=== PATIENT | male | born 1985 | race Caucasian/White ===

== ENCOUNTER 2017-07-30 19:27 | Emergency (ER) | payer SELFPAY ==
[2017-07-30 19:45] VITALS: BP 146/89
--- NOTE | 2017-07-30 20:17 | EDM.PDOC ---
ED HPI GENERAL MEDICAL PROBLEM - General Chief Complaint: Lower Extremity Injury/Pain Stated Complaint: POSS LEG INJURY Time Seen by Provider: 07/30/17 19:44 Source of Information: Reports: Patient History Limitations: Reports: No Limitations - History of Present Illness INITIAL COMMENTS - FREE TEXT/NARRATIVE: 32-year-old male presents for evaluation treatment of an injury to the left knee. Patient reports he was at work about one week ago. States he slipped on some ice and fell onto a chunk of ice. He acknowledges that he is overweight and states that he had a lot of weight onto his knee. Since the fall he has been experiencing pain for the left knee and left lower leg from the knee down to the ankle. Reports discomfort with ambulation. He also has abrasion to the left anterior tibia. No fevers, chills, nausea or vomiting. No numbness or tingling to the leg. Reports pain with certain movements and pain with ambulation. He is only been taking Aleve for pain and declines anything stronger. He denies any bruising to the but reports that the needed as well. He has been using compression sock which has helped with the swelling. No previous trauma to the left knee. Left Lower Leg Pain Score (Numeric/FACES): 9 - Related Data Allergies Allergy/AdvReac Type Severity Reaction Status Date / Time Penicillins Allergy Rash Verified 07/30/17 19:38 Home Meds: Home Meds . [No Known Home Meds] 07/30/17 [History] Past Medical History - Past Health History Medical/Surgical History: Denies Medical/Surgical History Musculoskeletal History: Reports: Other (See Below) Other Musculoskeletal History: artery bleed to the leg Social & Family History - Tobacco Use Smoking Status *Q: Never Smoker Second Hand Smoke Exposure: No - Caffeine Use Caffeine Use: Reports: Coffee, Tea - Alcohol Use Days Per Week of Alcohol Use: 0 - Recreational Drug Use Recreational Drug Use: No Review of Systems - Review of Systems Review Of Systems: See Below Constitutional: Denies: Chills, Fever GI/Abdominal: Denies: Nausea, Vomiting Musculoskeletal: Reports: Leg Pain (left knee and left tibia extending from the knee down to the ankle.), Joint Pain (Left knee), Joint Swelling (Left knee) Skin: Reports: Wound (left anterior proximal tibia, healign superficial abrasion ). Denies: Bruising Neurological: Denies: Numbness, Tingling ED EXAM, GENERAL - Physical Exam Exam: See Below Exam Limited By: No Limitations General Appearance: Alert, WD/WN, No Apparent Distress, Obese Respiratory/Chest: No Respiratory Distress, Lungs Clear, Normal Breath Sounds Cardiovascular: Normal Peripheral Pulses, Regular Rate, Rhythm, No Murmur Extremities: Normal Inspection, Normal Range of Motion (Full flexion to the left knee, full extension to the left knee), Normal Capillary Refill, Other ( Negative special testing on the left: Negative anterior drawer, posterior drawer , Charlene's, valgus and varus stress testing.; Identify tenderness to palpation to the proximal, anterior tibia and proximal anterior lateral tibia). No: Joint Swelling, Increased Warmth, Redness Neurological: Alert, Oriented, Normal Cognition, Normal Gait Psychiatric: Normal Affect, Normal Mood Skin Exam: Warm, Dry, Other (Approximately 6 cm healing, superficial abrasion to the left proximal anterior tibia, no surrounding erythema. No swelling.) Course - Vital Signs Last Recorded V/S: Last Vital Signs Temp 35.5 C 07/30/17 19:42 Pulse 66 07/30/17 19:42 Resp 20 07/30/17 19:42 BP 146/89 H 07/30/17 19:42 Pulse Ox 97 07/30/17 19:42 - Orders/Labs/Meds Orders: Active Orders 24 hr Category Date Time Status Knee Min 4V Lt [CR] Stat Exams 07/30/17 20:03 Ordered Tibia Fibula Lt [CR] Stat Exams 07/30/17 20:03 Ordered - Radiology Interpretation Free Text/Narrative:: xray of the left knee and left tib and fib reviewed by myself and Dr. Scruggs. No acute fractures appreciated. - Re-Assessments/Exams Free Text/Narrative Re-Assessment/Exam: 07/30/17 20:37 I reviewed the x-ray results with the patient. He declined any pain medication upon arrival to the ER. I'll have him follow-up with occupational health in one week if his symptoms persist. Likely a bruised bone. No signs of infection. Discharge instructions as documented. Departure - Departure Time of Disposition: 20:39 Disposition: Home, Self-Care 01 Condition: Fair Clinical Impression: Abrasion of knee, left, Traumatic ecchymosis of left knee - Discharge Information Instructions: Abrasion, [id number] Referrals: Jose R Reddy MD [Physician] - Forms: ED Department Discharge Additional Instructions: continue to use ice and compression to the knee as needed. Continue with [id number] Tylenol or Motrin as needed for pain. Follow-up with Dr. Reddy at occupational health if your symptoms beyond one week. Call [phone] to schedule with him. Activity as tolerated. Please return to the ER if your symptoms change or worsen. - My Orders Last 24 Hours: My Active Orders 07/30/17 20:03 Knee Min 4V Lt [CR] Stat Tibia Fibula Lt [CR] Stat - Assessment/Plan Last 24 Hours: My Active Orders 07/30/17 20:03 Knee Min 4V Lt [CR] Stat Tibia Fibula Lt [CR] Stat
--- NOTE | 2017-07-31 07:24 | CR ---
Left tibia and fibula: AP and lateral views of the left tibia and fibula were obtained. No fracture or other bony abnormality is seen. Impression: 1. No abnormality is seen on two-view left tibia and fibula study. Diagnostic code #1
--- NOTE | 2017-07-31 07:24 | CR ---
Left knee: Four views of the left knee were obtained. Comparison: No previous knee exam. Calcification is seen inferior to the patella which is likely dystrophic and old. Medial and lateral joint compartments are maintained in height. No joint effusion is seen. No fracture or other bony abnormality is seen. Impression: 1. Findings felt to be incidental as noted above. 2. Nothing acute is appreciated on left knee study. Diagnostic code #2
== END 2017-07-30 20:50 | disposition home or self-care (01) ==
LOC: JD.ED 19:27
DX: S80.02XA Contusion of left knee, initial encounter (principal); W00.0XXA Fall on same level due to ice and snow, initial encounter; Y99.0 Civilian activity done for income or pay; Z88.0 Allergy status to penicillin
CPT/HCPCS: 73564-26-LT; 73564-LT; 73590-26-LT; 73590-LT; 99283